=== PATIENT | male | born 1975 | race Caucasian/White ===

== ENCOUNTER 2017-06-14 20:45 | Emergency (ER) | payer BC ==
[2017-06-14 20:51] VITALS: PULSE 98; RESP 16; TEMP 98; O2SAT 98
[2017-06-14 21:11] VITALS: BP 155/101
--- NOTE | 2017-06-14 21:49 | C.PDOC ---
History Of Present Illness Patient presents to ED c/o of elevated blood pressure. Patient was recently started on HCTZ (12.5mg) by PMD two weeks ago, and then instructed to take twice the dose the following week (25mg). Patient states he checked his BP today and it was high. He was also feeling some left elbow pain. Patient called PMD and was instructed to come to ED for evaluation. He denies chest pain,SOB, palpitations, headache, dizziness, sensory changes, visual changes, extremity weakness, facial droop, slurred speech, gait changes. Patient admits he sleeping the hard floor, thinks he may have injured his elbow during sleep. Time Seen by Provider: 06/14/17 20:56 Chief Complaint (Nursing): High Blood Pressure History Per: Patient History/Exam Limitations: no limitations Associated Symptoms: denies: Chest Pain, Dyspnea, Dizziness, Blurred Vision, Focal Weakness, Headache Quality Of Symptoms: Asymptomatic Severity: None Past Medical History Reviewed: Historical Data, Nursing Documentation, Vital Signs Vital Signs: Last Vital Signs Temp 98 F 06/14/17 20:48 Pulse 98 H 06/14/17 20:48 Resp 16 06/14/17 20:48 BP 155/101 H 06/14/17 21:06 Pulse Ox 98 06/14/17 21:49 - Medical History PMH: HTN Family History: States: No Known Family Hx - Social History Hx Alcohol Use: No Hx Substance Use: No - Immunization History Hx Tetanus Toxoid Vaccination: No Hx Influenza Vaccination: No Hx Pneumococcal Vaccination: No Review Of Systems Except As Marked, All Systems Reviewed And Found Negative. Constitutional: Negative for: Fever, Chills Cardiovascular: Negative for: Chest Pain, Palpitations Respiratory: Negative for: Cough, Shortness of Breath Gastrointestinal: Negative for: Nausea, Vomiting, Abdominal Pain Musculoskeletal: Positive for: Other (left elbow pain) Neurological: Negative for: Weakness, Numbness, Incoordination, Confusion, Seizures, Headache, Dizziness Physical Exam - Physical Exam Appears: Well, Non-toxic, No Acute Distress Skin: Normal Color, Warm, Dry, No Rash Head: Normacephalic Oral Mucosa: Moist Cardiovascular: Rhythm Regular Respiratory: Normal Breath Sounds, No Rales, No Rhonchi, No Wheezing Gastrointestinal/Abdominal: Normal Exam, Bowel Sounds, Soft, No Tenderness Extremity: Normal ROM (at B/L elbows, wrists, shoulders), Capillary Refill (< 2 sec all digits), No Deformity, Other (left proximal radius mild TTP without swelling, erythema, ecchymosis) Extremity: Bilateral: Atraumatic, Normal Color And Temperature, Normal ROM Pulses: Left Radial: Normal, Right Radial: Normal Neurological/Psych: Oriented x3, Normal Speech, Normal Cognition Gait: Steady ED Course And Treatment ECG: Interpreted By Me, Viewed By Me (NSR 82 bpm, left axis deviation, LVH, no acute ST/T wave changes) ECG Interpretation: No Acute Changes O2 Sat by Pulse Oximetry: 98 (RA) Pulse Ox Interpretation: Normal Progress Note: EKG ordered and reviewed. Reevaluation Time: 21:50 Reassessment Condition: Improved (Patient reassurred that EKG does not show any acute changes, and that his left elbow pain is not heart related. He was instructed to continue HCTZ 25mg PO daily, and to follow up with PMD in 1-2 days. Patient understands he should return to ED if he has any concerning symtpoms.) Disposition Counseled Patient/Family Regarding: Studies Performed, Diagnosis, Need For Followup - Disposition Referrals: [facility] [Outside] Disposition: HOME/ ROUTINE Disposition Time: 21:50 Condition: STABLE Additional Instructions: FOLLOW UP WITH YOUR DOCTOR IN 1-2 DAYS AVOID SALTY FOODS/BEVERAGES RETURN TO EMERGENCY ROOM IF YOU HAVE ANY CONCERNING SYMPTOMS Instructions: Hypertension (ED) Forms: [facility] (Kazakh) Print Language: MOROCCAN - POA Present On Arrival: None - Clinical Impression Clinical Impression: Hypertension, Sprain of left elbow
== END 2017-06-14 22:05 | disposition home or self-care (01) ==
LOC: C.ER 20:45
DX: I10 Essential (primary) hypertension (principal); S53.402A Unspecified sprain of left elbow, initial encounter; X58.XXXA Exposure to other specified factors, initial encounter